=== PATIENT | male | born 1955 | race Caucasian/White ===

== ENCOUNTER 2018-02-28 07:44 | Day surgery (SDC) | payer MEDICAID ==
[~2018-02-28] VITALS: Ht 167.6 cm; Wt 73.9 kg
[~2018-02-28 07:44] MED LIST: BALANCED SALT IRRIG SOLN COMB1 500ML OP ONE; CYCLOPENTOLATE HCL 1% OPHTH DROPS 2ML LEFTEYE SCH; PHENYLEPHRINE HCL 10% OPHTH DROPS 5ML LEFTEYE SCH; SODIUM CHLORIDE 0.9% 500 ML IV ONE; TROPICAMIDE 1% OPHTH DROPS 15ML LEFTEYE SCH
[2018-02-28] MEDS ORDERED: ASPI-1159 PO (09:13)
[2018-02-28] MEDS ORDERED: SEVE800T8 PO (09:13)
[2018-02-28] MEDS ORDERED: FOLI0.8T23 PO (09:13)
[2018-02-28] MEDS ORDERED: DOCU-138 PO (09:13)
[2018-02-28] MEDS ORDERED: LISI40TA4 PO (09:13)
[2018-02-28] MEDS ORDERED: HYALURONATE SODIUM 14 MG/ML 0.85ML SYRINGE IO ONE (11:22)
[2018-02-28] MEDS ORDERED: MIDAZOLAM HCL 2 MG/2 ML VIAL ONE (11:34)
[2018-02-28] MEDS ORDERED: FENTANYL CITRATE/PF 50MCG/ML 2ML VIAL ONE (11:34)
[2018-02-28] MEDS ORDERED: PROPOFOL 200MG/20ML VIAL IV ONE (11:34)
[2018-02-28] MEDS ORDERED: DEXAMETHASONE 4MG/ML 1ML VIAL ONE (11:35)
[2018-02-28] MEDS ORDERED: ONDANSETRON HCL 4MG/2ML INJ ONE (11:35)
[2018-02-28] MEDS ORDERED: LIDOCAINE HCL/PF 1% 10 MG/ML 5ML VIAL ONE (11:36)
[2018-02-28] MEDS ORDERED: MEPERIDINE HCL/PF 25MG/ML CPJ IV PRN ×2 (12:00)
[2018-02-28] MEDS ORDERED: LABETALOL HCL 20MG/4ML CARPUJECT IV PRN (12:00)
[2018-02-28] MEDS ORDERED: ONDANSETRON HCL 4MG/2ML INJ IV PRN ×2 (12:00)
[2018-02-28] MEDS ORDERED: LABETALOL 5MG/ML SYR 20 MG/4 ML SYRINGE IV PRN (12:00)
[2018-02-28] MEDS ORDERED: HYDROMORPHONE HCL/PF 2MG/ML CPJ IV PRN ×2 (12:00)
[2018-02-28] MEDS ORDERED: TETRACAINE 0.5% OPHTH DROPS 4ML ONE (15:43)
[2018-02-28] MEDS ORDERED: PREDNISOLONE ACETATE 1% OPHTH DROPS 1ML ONE (15:43)
[2018-02-28] MEDS ORDERED: PHENYLEPHRINE HCL 10% OPHTH DROPS 5ML ONE (15:43)
[2018-02-28] MEDS ORDERED: BUPIVACAINE HCL/PF 0.75% (7.5MG/ML) 10ML ONE (15:43)
[2018-02-28] MEDS ORDERED: NEO/POLYMYX B SULF/DEXAMETH OPHTH OINT 3.5GM ONE (15:43)
[2018-02-28] MEDS ORDERED: LIDOCAINE HCL 2%/EPINEPHRINE 1:100,000 20 ML VIAL INFIL ONE (15:43)
[2018-02-28] MEDS ORDERED: CIPROFLOXACIN 0.3% OPHTH SOLN 2.5ML ONE (15:43)
[2018-02-28] MEDS ORDERED: BALANCED SALT IRRIG SOLN 15ML ONE (15:43)
[2018-02-28] MEDS ORDERED: CYCLOPENTOLATE HCL 1% OPHTH DROPS 2ML ONE (15:43)
[2018-02-28] MEDS ORDERED: TROPICAMIDE 1% OPHTH DROPS 15ML ONE (15:43)
[2018-02-28] MEDS ORDERED: LIDOCAINE HCL/PF 2% 20 MG/ML 10ML VIAL ONE (15:43)
== END 2018-02-28 13:40 | disposition home or self-care (01) ==
LOC: OR 07:44
PROVIDERS: ATTEND Ophthalmology
DX: H25.12 Age-related nuclear cataract, left eye (principal); D64.9 Anemia, unspecified; I12.0 Hypertensive chronic kidney disease with stage 5 chronic kidney disease or end stage renal disease; N18.6 End stage renal disease; Z99.2 Dependence on renal dialysis; Z98.890 Other specified postprocedural states; Z79.82 Long term (current) use of aspirin; Z79.899 Other long term (current) drug therapy
CPT/HCPCS: 36415; 66982; 84132; J1100; J2250; J2405; J3010; J3490; V2632; J2704